=== PATIENT | female | born 1960 | race Asian ===

== ENCOUNTER 2023-07-18 08:52 | Day surgery (SDC) | payer BC, OTHER ==
[2023-07-11 10:58] VITALS: BMI 23.8
[2023-07-18] MEDS ORDERED: TETRACAINE 0.5% OPHTH SOLN 2 ML BOTTLE ONE (09:11)
[2023-07-18] MEDS ORDERED: LIDOCAINE 1% P/F 10 MG/ML VIAL ONE (09:11)
[2023-07-18] MEDS ORDERED: NEO/POLYMYX B SULF/DEXAMETH OPHTHALMIC 5ML BOTTLE ONE (09:12)
[2023-07-18] MEDS ORDERED: CARBACHOL 0.01% INTRA-OCULAR 1.5 ML VIAL ONE (09:12)
[2023-07-18] MEDS ORDERED: BSS (NA/CA/MG/K) BALANCED SALT SOLUTION OPHTH SOLN 15 ML BOTTLE ONE (09:12)
[2023-07-18] MEDS: PHENYLEPHRINE 2.5% OPTHALMIC DROP 2ML BOTTLE ONE ×3 (09:15→09:25)
[2023-07-18] MEDS: TROPICAMIDE 1% OPHTH SOLN 15 ML BOTTLE ONE ×3 (09:15→09:25)
[2023-07-18] MEDS: CIPROFLOXACIN 0.3% EYE DROPS 5 ML BOTTLE ONE ×3 (09:15→09:25)
[2023-07-18] MEDS: CYCLOPENTOLATE 2% OPHTH SOLN 2 ML BOTTLE ONE ×3 (09:15→09:25)
[2023-07-18 11:48] VITALS: TEMP 97.7
[2023-07-18 12:05] VITALS: BP 110/67; PULSE 58; RESP 16
== END 2023-07-18 12:15 | disposition home or self-care (01) ==
LOC: FASU 08:52
PROVIDERS: ATTEND Ophthalmology
PROC: 08RK3JZ Replacement of Left Lens with Synthetic Substitute, Percutaneous Approach (ICD-10-PCS; principal; 2023-07-18 11:16)
DX: H26.8 Other specified cataract (principal); H21.542 Posterior synechiae (iris), left eye
CPT/HCPCS: 66982; V2632